=== PATIENT | female | born 1960 | race Caucasian/White ===

== ENCOUNTER 2021-05-11 20:23 | Emergency (ER) | payer BC, OTHER ==
[2021-05-11 20:35] VITALS: BP 155/77; PULSE 75; RESP 18; TEMP 97.9
[2021-05-11] MEDS ORDERED: KETOROLAC 15 MG/ML 1 ML VIAL IM STA (20:51)
--- NOTE | 2021-05-11 21:12 | XR ---
EXAMINATION TYPE: XR tibia fibula RT DATE OF EXAM: 05/11/2021 COMPARISON: NONE HISTORY: Pain TECHNIQUE: 2 views FINDINGS: There is nondisplaced oblique fracture proximal shaft of the fibula. The tibia is intact. K nee joint is intact. Ankle joint is intact. IMPRESSION: Acute nondisplaced fibula fracture.
[2021-05-11] MEDS ORDERED: ACET/COD 300 MG/30 MG STARTER PACK 6 TAB BTL PO STA (21:49)
--- NOTE | 2021-05-11 21:49 | ED ---
Lower Extremity Injury HPI - General Chief Complaint: Extremity Injury, Lower Stated Complaint: R leg injury Time Seen by Provider: 05/11/21 20:48 Source: patient Mode of arrival: ambulatory Limitations: no limitations - History of Present Illness Initial Comments: 60 year-old female patient presents for evaluation of right leg pain. Patient states she was playing soft ball when she twisted her leg and felt a "snap". Patient states she is having pain to the right lateral mid lower leg. States that pain is radiating down the leg. Denies numbness or tingling. Denies falling, hitting her head, or sustaining any other injuries. Denies previous injury to the leg or muscle. Denies taking anything for pain. Patient denies any headache, neck pain, back pain, chest pain, shortness of breath, dizziness, weakness, abdominal pain, nausea, vomiting, or difficulties with bowel movements or urination. - Related Data Previous Rx's Medication Instructions Recorded Ibuprofen [Motrin] 600 mg PO Q6HR PRN #20 tab 11/18/14 Ibuprofen [Motrin] 600 mg PO Q8HR PRN #30 tab 05/11/21 Allergies Allergy/AdvReac Type Severity Reaction Status Date / Time No Known Allergies Allergy Verified 05/11/21 20:35 Review of Systems ROS Statement: Those systems with pertinent positive or pertinent negative responses have been documented in the HPI. ROS Other: All systems not noted in ROS Statement are negative. Past Medical History Past Medical History: No Reported History History of Any Multi-Drug Resistant Organisms: None Reported Past Surgical History: No Surgical Hx Reported Past Psychological History: No Psychological Hx Reported Smoking Status: Never smoker Past Alcohol Use History: None Reported Past Drug Use History: None Reported General Exam Limitations: no limitations General appearance: alert, in no apparent distress, other (This is a well- developed, well-nourished adult female patient in no acute distress. Vital signs upon presentation are temperature 97.9F, pulse 75, respirations 18, blood pressure 155/77, pulse ox 98% on room air.) Respiratory exam: Present: normal lung sounds bilaterally. Absent: respiratory distress, wheezes, rales, rhonchi, stridor Cardiovascular Exam: Present: regular rate, normal rhythm, normal heart sounds. Absent: systolic murmur, diastolic murmur, rubs, gallop, clicks Extremities exam: Present: full ROM, tenderness (Right proximal tib fib region), normal capillary refill, other (Soft tissue swelling noted over the right later al proximal fibular region. Skin to the leg is pink, warm, dry. Cap refill less than 3 seconds. Pedal and posttibial pulses 2+.). Absent: pedal edema, joint swelling, calf tenderness Neurological exam: Present: alert, oriented X3, CN II-XII intact Psychiatric exam: Present: normal affect, normal mood Skin exam: Present: warm, dry, intact, normal color. Absent: rash Course Vital Signs 05/11/21 20:32 Temperature 97.9 F Pulse Rate 75 Respiratory 18 Rate Blood Pressure 155/77 O2 Sat by Pulse 98 Oximetry Procedures - Orthopedic Splinting/Casting Injury #1 Side: right Lower Extremity Injury Location: short leg Lower Extremity Immobilizer: stirrup splint, [place] wrap, synthetic pre-padded splint Additional Comments: Neurovascular status intact after splint application. Skin to the right foot is pink, warm, dry. Cap refill less than 3 seconds. Pedal pulse 2+. Medical Decision Making - Medical Decision Making 60-year-old female patient presents to the emergency department today for evaluation of right lateral lower leg pain after a twisting injury while playing softball. Physical examination did reveal soft tissue swelling over the area. Neurovascular status is intact. X-ray was obtained and did reveal nondisplaced right fibular fracture. She was placed in a long ankle stirrup splint extending up to the knee. She does have crutches at home is instructed to remain nonweightbearing until she follows up with orthopedics. She is instructed to call Wednesday for an appointment. She is given pain medication to take home. Return parameters were discussed in detail. She verbalizes understanding and agrees this plan. Case discussed with my attending Dr. Kidd. - Radiology Data Radiology results: report reviewed, image reviewed Two-view x-ray of the right tib-fib was obtained. Report was reviewed in its entirety. Impression by Dr. Gil shows acute nondisplaced fibular fracture. Disposition Clinical Impression: Right fibular fracture Disposition: HOME SELF-CARE Condition: Good Instructions (If sedation given, give patient instructions): Leg Fracture (ED), Splint Care (ED) Additional Instructions: Follow up with a specialist for further evaluation as soon as possible. Call Wednesday morning for an appointment. Leave splint in place until follow-up. Rest, ice, elevate the leg. Use crutches until cleared by orthopedics. Return for any new, worsening, or concerning symptoms. Prescriptions: Ibuprofen [Motrin] 600 mg PO Q8HR PRN #30 tab PRN Reason: Pain Is patient prescribed a controlled substance at d/c from ED?: No Referrals: Sal Whyte DO [Doctor of Osteopathic Medicine] - 1-2 days Time of Disposition: 21:49
== END 2021-05-11 22:02 | disposition home or self-care (01) ==
LOC: EC 20:23
DX: S82.401A Unspecified fracture of shaft of right fibula, initial encounter for closed fracture (principal); Y93.64 Activity, baseball; X50.1XXA Overexertion from prolonged static or awkward postures, initial encounter
CPT/HCPCS: 73590; 29505; 99283; 96372; J1885

== ENCOUNTER → 2021-05-22 | Outpatient (CLI) | payer OTHER | END | disposition home or self-care (01) | LOC: LABWHC1 12:12 | PROVIDERS: ATTEND Physician Assistant | DX: S82.434D Nondisplaced oblique fracture of shaft of right fibula, subsequent encounter for closed fracture with routine healing (principal); M79.661 Pain in right lower leg; M25.571 Pain in right ankle and joints of right foot; X58.XXXD Exposure to other specified factors, subsequent encounter | CPT/HCPCS: 36415; 82306 ==

== ENCOUNTER → 2021-07-28 | Outpatient (CLI) | payer OTHER | END | disposition home or self-care (01) | LOC: LABWHC1 09:48 | PROVIDERS: ATTEND Physician Assistant | DX: S82.434D Nondisplaced oblique fracture of shaft of right fibula, subsequent encounter for closed fracture with routine healing (principal); X58.XXXD Exposure to other specified factors, subsequent encounter | CPT/HCPCS: 36415; 82306 ==

== ENCOUNTER 2021-09-02 13:21 | Emergency (ER) | payer OTHER ==
--- NOTE | 2021-09-02 16:13 | XR ---
EXAMINATION TYPE: XR KUB DATE OF EXAM: 09/02/2021 Comparison: None Clinical History: 61-year-old female abdominal pain, vomiting, flank pain, abd pain Findings: No evidence for free intraperitoneal air. No dilated small bowel or air-fluid levels. Scattered moderate stool burden. Bowel content largely spares the left renal shadow. Round calcifications in the pelvis likely phleboliths. Impression: No evidence for free air or bowel obstruction. Moderate stool burden.
[2021-09-02] MEDS ORDERED: SODIUM CHLORIDE 0.9% 1,000 ML IV STA (16:42)
[2021-09-02] MEDS ORDERED: MORPHINE SULFATE 4 MG/ML SYRINGE IV STA (16:42)
[2021-09-02] MEDS ORDERED: ONDANSETRON 4 MG/2 ML VIAL IVP STA (16:42)
[2021-09-02 17:28] LABS: Basophils % (A) 0 %; Eosinophils # (A) 0.1 k/uL (0-0.7); Eosinophils % (A) 2 %; HCT 41.1 % (34.0-46.0); Lymphocytes # (A) 0.8 k/uL (1.0-4.8); Lymphocytes % (A) 9 %; MCH 31.2 pg (25.0-35.0); MCV 91.6 fL (80.0-100.0); Mean Platelet Volume 7.3; Monocytes # (A) 0.4 k/uL (0-1.0); Monocytes % (A) 4 %; Neutrophils # (A) 7.2 k/uL (1.3-7.7); Neutrophils % (A) 83 %; Platelet Count 332 k/uL (150-450); RBC 4.48 m/uL (3.80-5.40); RDW 12.5 % (11.5-15.5); WBC 8.6 k/uL (3.8-10.6)
--- NOTE | 2021-09-02 17:36 | ED ---
Abdominal Pain HPI - General Chief Complaint: Abdominal Pain Stated Complaint: Vomiting Time Seen by Provider: 09/02/21 16:22 Source: patient Mode of arrival: ambulatory Limitations: no limitations - History of Present Illness Initial Comments: 61 year-old female patient presents to the emergency department for evaluation of lower abdominal pain and right low back pain. States that it started this morning as and worsening throughout the day. She does report a few episodes of vomiting. Denies fever or chills. Denies any constipation or diarrhea. Last bowel movement was this morning. Does report some urinary frequency. States she has had tubal ligation in the past and no other abdominal surgeries. Patient denies any recent rash, cough, shortness of breath, chest pain, numbness, tingling, dizziness, weakness, hematuria, dysuria, urinary urgency, urinary frequency, headache, visual changes, or any other complaints. - Related Data Home Medications Medication Instructions Recorded Confirmed Cholecalciferol [Vitamin D3 (25 50 mcg PO HS 09/02/21 09/02/21 Mcg = 1000 Iu)] Previous Rx's Medication Instructions Recorded Ibuprofen [Motrin] 600 mg PO Q8HR PRN #30 tab 09/02/21 Ondansetron [Zofran ODT] 4 mg PO Q8HR PRN #10 tab 09/02/21 Sulfamethoxazole/Trimethoprim 1 each PO BID #14 tablet 09/02/21 [Bactrim DS 800-160 mg] Tamsulosin HCl [Flomax] 0.4 mg PO DAILY #7 cap 09/02/21 Allergies Allergy/AdvReac Type Severity Reaction Status Date / Time No Known Allergies Allergy Verified 09/02/21 17:32 Review of Systems ROS Statement: Those systems with pertinent positive or pertinent negative responses have been documented in the HPI. ROS Other: All systems not noted in ROS Statement are negative. Past Medical History Past Medical History: No Reported History History of Any Multi-Drug Resistant Organisms: None Reported Past Surgical History: No Surgical Hx Reported Past Psychological History: No Psychological Hx Reported Smoking Status: Never smoker Past Alcohol Use History: None Reported Past Drug Use History: None Reported General Exam Limitations: no limitations General appearance: alert, in no apparent distress, other (This is a well- developed, well-nourished adult female patient in no acute distress.) Eye exam: Present: normal appearance, PERRL, EOMI. Absent: scleral icterus, conjunctival injection, periorbital swelling ENT exam: Present: normal exam, normal oropharynx, mucous membranes moist Respiratory exam: Present: normal lung sounds bilaterally. Absent: respiratory distress, wheezes, rales, rhonchi, stridor Cardiovascular Exam: Present: regular rate, normal rhythm, normal heart sounds. Absent: systolic murmur, diastolic murmur, rubs, gallop, clicks GI/Abdominal exam: Present: soft, tenderness (Suprapubic), normal bowel sounds. Absent: distended, guarding, rebound, rigid Neurological exam: Present: alert, oriented X3, CN II-XII intact Psychiatric exam: Present: normal affect, normal mood Skin exam: Present: warm, dry, intact, normal color. Absent: rash Course Vital Signs 09/02/21 09/02/21 14:39 19:03 Temperature 98.8 F 98.1 F Pulse Rate 75 81 Respiratory 19 16 Rate Blood Pressure 156/87 130/82 O2 Sat by Pulse 100 96 Oximetry Medical Decision Making - Medical Decision Making 61-year-old female patient presents to the emergency department today for evaluation of right low back pain, right lower quadrant abdominal pain. Physical examination did reveal suprapubic tenderness. Right CVA tenderness. She is afebrile, vital signs. Labs reviewed and did reveal hematuria. CT abdomen and pelvis with contrast was obtained and showed evidence for right- sided obstructing ureteral stone measuring 4 mm. Mild right-sided hydronephrosis. The findings and results with her. She'll be sent home with pain medication, nausea medication, Flomax. Instructed to follow up with urologist for further evaluation. Return parameters were discussed in detail. She verbalizes understanding and agrees this plan. My attending is Dr. Lopes. - Lab Data Result diagrams: 09/02/21 17:03 09/02/21 17:03 Lab Results 09/02/21 09/02/21 09/02/21 Range/Units 17:03 17: 17:03 WBC 8.6 (3.8-10.6) k/uL RBC 4.48 (3.80-5.40) m/uL Hgb 14.0 (11.4-16.0) gm/dL Hct 41.1 (34.0-46.0) % MCV 91.6 (80.0-100.0) fL MCH 31.2 (25.0-35.0) pg MCHC 34.0 (31.0-37.0) g/dL RDW 12.5 (11.5-15.5) % Plt Count 332 (150-450) k/uL MPV 7.3 Neutrophils % 83 % Lymphocytes % 9 % Monocytes % 4 % Eosinophils % 2 % Basophils % 0 % Neutrophils # 7.2 (1.3-7.7) k/uL Lymphocytes # 0.8 L (1.0-4.8) k/uL Monocytes # 0.4 (0-1.0) k/uL Eosinophils # 0.1 (0-0.7) k/uL Basophils # 0.0 (0-0.2) k/uL Sodium 138 (137-145) mmol/L Potassium 4.3 (3.5-5.1) mmol/L Chloride 103 (98-107) mmol/L Carbon Dioxide 24 (22-30) mmol/L Anion Gap 11 mmol/L BUN 19 H (7-17) mg/dL Creatinine 0.71 (0.52-1.04) mg/dL Est GFR (CKD-EPI)AfAm >90 (>60 ml/min/1.73 sqM) Est GFR (CKD-EPI)NonAf >90 (>60 ml/min/1.73 sqM) Glucose 102 H (74-99) mg/dL Plasma Lactic Acid Juan Miguel (0.7-2.0) mmol/L Calcium 9.9 (8.4-10.2) mg/dL Total Bilirubin 0.5 (0.2-1.3) mg/dL AST 23 (14-36) U/L ALT 13 (4-34) U/L Alkaline Phosphatase 105 (38-126) U/L Total Protein 8.0 (6.3-8.2) g/dL Albumin 4.6 (3.5-5.0) g/dL Lipase 276 (23-300) U/L Urine Color Yellow Urine Appearance Cloudy H (Clear) Urine pH 5.0 (5.0-8.0) Ur Specific [place] 1.025 (1.001-1.035) Urine Protein Trace H (Negative) Urine Glucose (UA) Negative (Negative) Urine Ketones 2+ H (Negative) Urine Blood Large H (Negative) Urine Nitrite Negative (Negative) Urine Bilirubin Negative (Negative) Urine Urobilinogen <2.0 (<2.0) mg/dL Ur Leukocyte Esterase Moderate H (Negative) Urine RBC >182 H (0-5) /hpf Urine WBC 11 H (0-5) /hpf Ur Squamous Epith Cells 1 (0-4) /hpf Urine Bacteria Rare H (None) /hpf Hyaline Casts 1 (0-2) /lpf Urine Mucus Occasional H (None) /hpf 09/02/21 Range/Units 17:03 WBC (3.8-10.6) k/uL RBC (3.80-5.40) m/uL Hgb (11.4-16.0) gm/dL Hct (34.0-46.0) % MCV (80.0-100.0) fL MCH (25.0-35.0) pg MCHC (31.0-37.0) g/dL RDW (11.5-15.5) % Plt Count (150-450) k/uL MPV Neutrophils % % Lymphocytes % % Monocytes % % Eosinophils % % Basophils % % Neutrophils # (1.3-7.7) k/uL Lymphocytes # (1.0-4.8) k/uL Monocytes # (0-1.0) k/uL Eosinophils # (0-0.7) k/uL Basophils # (0-0.2) k/uL Sodium (137-145) mmol/L Potassium (3.5-5.1) mmol/L Chloride (98-107) mmol/L Carbon Dioxide (22-30) mmol/L Anion Gap mmol/L BUN (7-17) mg/dL Creatinine (0.52-1.04) mg/dL Est GFR (CKD-EPI)AfAm (>60 ml/min/1.73 sqM) Est GFR (CKD-EPI)NonAf (>60 ml/min/1.73 sqM) Glucose (74-99) mg/dL Plasma Lactic Acid Juan Miguel 0.9 (0.7-2.0) mmol/L Calcium (8.4-10.2) mg/dL Total Bilirubin (0.2-1.3) mg/dL AST (14-36) U/L ALT (4-34) U/L Alkaline Phosphatase (38-126) U/L Total Protein (6.3-8.2) g/dL Albumin (3.5-5.0) g/dL Lipase (23-300) U/L Urine Color Urine Appearance (Clear) Urine pH (5.0-8.0) Ur Specific [place] (1.001-1.035) Urine Protein (Negative) Urine Glucose (UA) (Negative) Urine Ketones (Negative) Urine Blood (Negative) Urine Nitrite (Negative) Urine Bilirubin (Negative) Urine Urobilinogen (<2.0) mg/dL Ur Leukocyte Esterase (Negative) Urine RBC (0-5) /hpf Urine WBC (0-5) /hpf Ur Squamous Epith Cells (0-4) /hpf Urine Bacteria (None) /hpf Hyaline Casts (0-2) /lpf Urine Mucus (None) /hpf - Radiology Data Radiology results: report reviewed, image reviewed KUB x-ray of the abdomen is obtained. Report is reviewed in its entirety. Impression by Dr. Lawson shows no evidence for free air or bowel obstruction. Moderate stool burden. CT abdomen and pelvis with contrast was obtained. Report was reviewed in its entirety. Impression by Dr. Gil shows small instructed calculus proximal right ureter with mild right-sided hydronephrosis. Normal appendix. Sigmoid diverticulosis without diverticulitis. Disposition Clinical Impression: Right ureteral stone, Hydronephrosis, right Disposition: HOME SELF-CARE Condition: Good Instructions (If sedation given, give patient instructions): Kidney Stones (ED) Additional Instructions: Take medication as directed. Increase fluids. Follow-up with urologist for further evaluation as soon as possible. Return to the emergency department for any new, worsening, or concerning symptoms. Prescriptions: Sulfamethoxazole/Trimethoprim [Bactrim DS 800-160 mg] 1 each PO BID #14 tablet Tamsulosin HCl [Flomax] 0.4 mg PO DAILY #7 cap Ibuprofen [Motrin] 600 mg PO Q8HR PRN #30 tab PRN Reason: Pain Ondansetron [Zofran ODT] 4 mg PO Q8HR PRN #10 tab PRN Reason: Nausea Is patient prescribed a controlled substance at d/c from ED?: No Referrals: None,Stated [Primary Care Provider] - 1-2 days Jose Alfredo Moreland MD [STAFF PHYSICIAN] - 1-2 days Time of Disposition: 19:00
[2021-09-02 17:45] LABS: Chloride 103 mmol/L (98-107)
[2021-09-02 17:47] LABS: ALT 13 U/L (4-34); AST 23 U/L (14-36); African American GFR (CKD) >90 (>60 ml/min/1.73 sqM); Albumin 4.6 g/dL (3.5-5.0); Alkaline Phosphatase 105 U/L (38-126); Anion Gap 11 mmol/L; Appearance,Urine Cloudy (Clear); Bacteria,Urine Rare /hpf; Bilirubin,Urine Negative (Negative); Blood Urea Nitrogen 19 mg/dL (7-17); Blood,Urine Large (Negative); Calcium 9.9 mg/dL (8.4-10.2); Carbon Dioxide 24 mmol/L (22-30); Color,Urine Yellow; Glucose 102 mg/dL (74-99); Glucose,Urine (UA) Negative (Negative); Hyaline Casts,Urine 1 /lpf (0-2); Ketones,Urine 2+ (Negative); Leukocyte Esterase,Urine Moderate (Negative); Lipase 276 U/L (23-300); Mucus,Urine Occasional /hpf; Nitrite,Urine Negative (Negative); Non-African American GFR(CKD) >90 (>60 ml/min/1.73 sqM); Potassium 4.3 mmol/L (3.5-5.1); Protein,Urine Trace (Negative); RBC,Urine >182 /hpf (0-5); Sodium 138 mmol/L (137-145); Specific Gravity,Urine 1.025 (1.001-1.035); Squamous Epithelial Cell,Urine 1 /hpf (0-4); Total Bilirubin 0.5 mg/dL (0.2-1.3); Urobilinogen,Urine <2.0 mg/dL (<2.0); WBC,Urine 11 /hpf (0-5)
--- NOTE | 2021-09-02 18:42 | CT ---
EXAMINATION TYPE: CT abdomen pelvis w con DATE OF EXAM: 09/02/2021 COMPARISON: None HISTORY: Right sided flank pain with increasd frequency of urination CT DLP: 573.6 mGycm Automated exposure control for dose reduction was used. CONTRAST: Performed with IV Contrast, patient injected with 100 mL of Isovue 300. Images obtained from the diaphragm to the floor the pelvis with IV contrast. Lung bases are clear. There is no pleural effusion. Heart size is normal. There is no pericardial eff usion. Liver spleen pancreas stomach gallbladder appear intact. Bile ducts are not dilated. There is no adrenal mass. Kidneys have normal size and contour. There are 1 cm cortical cyst in the r ight kidney. There is mild ectasia of the right ureter. There is 4 mm calculus in the proximal right ureter. There is fullness of the right renal pelvis. There is no retroperitoneal adenopathy. Bladder distends smoothly. There is no inguinal hernia. There is no free fluid in the pelvis. The uterus is retroverted. There is no free fluid in the pelvis. There is no evidence of a pelvic mas s. Appendix is posterior in the pelvis and appears normal. There is no mesenteric edema. There is no ascites or free air. There are some sigmoid diverticula. Th ere is no diverticulitis. The lumbar vertebra have normal alignment. Posterior elements are intact. There is no compression fra cture. The bony pelvis is intact. The hip joints are intact. IMPRESSION: Small obstructing calculus proximal right ureter with mild right-sided hydronephrosis. Normal appendix. Minimal sigmoid diverticulosis without diverticulitis.
[2021-09-02] MEDS ORDERED: TAMSULOSIN 0.4 MG CAP.ER.24H PO STA (18:45)
[2021-09-02] MEDS ORDERED: ACET/COD 300 MG/30 MG STARTER PACK 6 TAB BTL PO STA (18:51)
[2021-09-02] MEDS ORDERED: IBUPROFEN 600 MG STARTER PACK 4 TAB BTL PO STA (18:51)
[2021-09-02] MEDS ORDERED: SULFAMETH-TMP DS STARTER PACK 2 TAB BTL PO STA (18:51)
[2021-09-02 19:11] VITALS: BP 130/82; PULSE 81; RESP 16; TEMP 98.1
== END 2021-09-02 19:11 | disposition home or self-care (01) ==
LOC: EC 13:21
DX: N13.2 Hydronephrosis with renal and ureteral calculous obstruction (principal); Z79.1 Long term (current) use of non-steroidal anti-inflammatories (NSAID); Z79.899 Other long term (current) drug therapy
CPT/HCPCS: 99284 ×2; 96374 ×2; 96375 ×2; 96361 ×2; 36415; 80053; 83605; 83690; 85025; 81001; 87086; 74018; 74177; J2270; J2405; Q9967

== ENCOUNTER → 2021-09-10 | Outpatient (CLI) | payer OTHER ==
--- NOTE | 2021-09-11 08:10 | XR ---
EXAMINATION TYPE: XR KUB DATE OF EXAM: 09/10/2021 HISTORY: 09/02/2021 Comparison: None.Single KUB is submitted for interpretation. Findings: Right renal calculi: None Visualized. Right ureteral calculi: None Visualized. Left renal calculi: None Visualized. Left ureteral calculi: None Visualized. Pelvic calcifications: None Visualized. Bowel gas pattern is unremarkable. No free air. No mass effects. Large amount of intracolonic debri s limits evaluation. IMPRESSION: 1. No visible calculus at this time.
== END | disposition home or self-care (01) ==
LOC: RADXRMAIN 15:50
PROVIDERS: ATTEND Urology
DX: N20.1 Calculus of ureter (principal)
CPT/HCPCS: 74018